=== PATIENT | male | born 1960 | race African-American/Black ===

== ENCOUNTER 2020-12-19 17:02 | Emergency (ER) | payer SELFPAY ==
[2020-12-19 19:08] LABS: ALT (SGPT) 14 U/L (8-55); AST (SGOT) 28 U/L (5-34); Albumin 3.8 g/dL (3.4-4.8); Alkaline Phosphatase 111 U/L (40-110); Anion Gap 14 mmol/L (10-20); BUN (Urea Nitrogen) 17 mg/dL (8.4-25.7); Bilirubin, Total 0.2 mg/dL (0.2-1.2); CK (CPK) 139 U/L (30-200); Calc. Creatinine Clearance 0 mL/min (70-130); Calcium 9.2 mg/dL (7.8-10.44); Carbon Dioxide 23 mmol/L (23-31); Chloride 108 mmol/L (98-107); Globulin 4.1 g/dL (2.4-3.5); Glucose 103 mg/dL (80-115); Potassium 4.8 mmol/L (3.5-5.1); Protein, Total 7.9 g/dL (5.8-8.1); Sodium 140 mmol/L (136-145)
[2020-12-19 19:10] LABS: #Basophils 0.1 thou/uL (0.0-0.2); #Eosinphils 0.2 thou/uL (0.0-0.7); #Lymphocytes 2.2 thou/uL (1.20-3.40); #Monocytes 0.7 thou/uL (0.11-0.59); %Basophils 0.7 % (0.0-1.0); %Lymphocytes 17.8 % (21.0-51.0); %Monocytes 5.6 % (0.0-10.0); %Neutrophils 73.9 % (42.0-75.0); Hemoglobin 12.7 g/dL (14.0-18.0); Mean Corpuscular HGB CONC 32.8 g/dL (32.0-36.0); Mean Corpuscular Hemoglobin 28.5 pg (27.0-31.0); Mean Corpuscular Volume 86.8 fL (78.0-98.0); Mean Platelet Volume 9.1 fL (7.4-10.4); Platelet Count 222 thou/uL (130-400); RBC Distribution Width 13.6 % (11.5-14.5); Red Blood Cell (RBC) Count 4.46 mill/uL (4.70-6.10); White Blood Cell (WBC) Count 12.2 thou/uL (4.8-10.8)
== END 2020-12-19 21:01 | disposition home or self-care (01) ==
LOC: ERS 17:02
DX: D64.9 Anemia, unspecified (principal); R25.2 Cramp and spasm; I10 Essential (primary) hypertension; F17.290 Nicotine dependence, other tobacco product, uncomplicated
CPT/HCPCS: 36415; 80053; 82550; 85025; 99283

== ENCOUNTER 2020-12-28 21:25 | Emergency (ER) | payer SELFPAY ==
[2020-12-28 23:31] LABS: #Basophils 0.1 thou/uL (0.0-0.2); #Eosinphils 0.4 thou/uL (0.0-0.7); #Monocytes 0.8 thou/uL (0.11-0.59); #Neutrophils 5.9 thou/uL (1.40-6.50); %Basophils 0.8 % (0.0-1.0); %Eosinophils 4.1 % (0.0-10.0); %Lymphocytes 29.7 % (21.0-51.0); %Monocytes 7.4 % (0.0-10.0); %Neutrophils 58.1 % (42.0-75.0); Hemoglobin 13.8 g/dL (14.0-18.0); Mean Corpuscular HGB CONC 32.7 g/dL (32.0-36.0); Mean Corpuscular Hemoglobin 28.6 pg (27.0-31.0); Mean Corpuscular Volume 87.4 fL (78.0-98.0); Mean Platelet Volume 8.6 fL (7.4-10.4); Platelet Count 236 thou/uL (130-400); RBC Distribution Width 14.1 % (11.5-14.5); Red Blood Cell (RBC) Count 4.84 mill/uL (4.70-6.10); White Blood Cell (WBC) Count 10.2 thou/uL (4.8-10.8)
[2020-12-28 23:46] LABS: ALT (SGPT) 22 U/L (8-55); AST (SGOT) 18 U/L (5-34); Albumin 3.9 g/dL (3.4-4.8); Alkaline Phosphatase 108 U/L (40-110); Anion Gap 11 mmol/L (10-20); BUN (Urea Nitrogen) 17 mg/dL (8.4-25.7); Bilirubin, Total 0.2 mg/dL (0.2-1.2); Calc. Creatinine Clearance 0 mL/min (70-130); Calcium 9.5 mg/dL (7.8-10.44); Carbon Dioxide 24 mmol/L (23-31); Chloride 110 mmol/L (98-107); Globulin 3.2 g/dL (2.4-3.5); Glucose 99 mg/dL (80-115); Potassium 4.4 mmol/L (3.5-5.1); Protein, Total 7.1 g/dL (5.8-8.1); Sodium 141 mmol/L (136-145)
[2020-12-28 23:47] LABS: Acetaminophen Less than 6.0 mcg/mL (10.0-30.0); Alcohol Less than 10 mg/dL (Less than 10); Salicylate Less than 8.0 mg/dL (15.0-30.0)
== END 2020-12-29 00:15 | disposition home or self-care (01) ==
LOC: ERS 21:25
DX: G47.9 Sleep disorder, unspecified (principal); R42 Dizziness and giddiness; I10 Essential (primary) hypertension; F17.290 Nicotine dependence, other tobacco product, uncomplicated
CPT/HCPCS: 36415; 70450; 80053; 80307; 84443; 85025; 93005

== ENCOUNTER 2021-03-13 15:28 | Emergency (ER) | payer OTHER, SELFPAY ==
[2021-03-13 16:22] LABS: #Basophils 0.1 thou/uL (0.0-0.2); #Eosinphils 0.1 thou/uL (0.0-0.7); #Lymphocytes 1.8 thou/uL (1.20-3.40); #Monocytes 0.5 thou/uL (0.11-0.59); #Neutrophils 4.2 thou/uL (1.40-6.50); %Basophils 1.2 % (0.0-1.0); %Eosinophils 1.6 % (0.0-10.0); %Lymphocytes 27.2 % (21.0-51.0); %Monocytes 6.8 % (0.0-10.0); %Neutrophils 63.2 % (42.0-75.0); Mean Corpuscular HGB CONC 32.5 g/dL (32.0-36.0); Mean Corpuscular Hemoglobin 28.1 pg (27.0-31.0); Mean Corpuscular Volume 86.2 fL (78.0-98.0); Mean Platelet Volume 8.6 fL (7.4-10.4); Platelet Count 228 thou/uL (130-400); Red Blood Cell (RBC) Count 4.98 mill/uL (4.70-6.10); White Blood Cell (WBC) Count 6.7 thou/uL (4.8-10.8)
[2021-03-13 16:43] LABS: ALT (SGPT) 8 U/L (8-55); AST (SGOT) 12 U/L (5-34); Albumin 3.7 g/dL (3.4-4.8); Alkaline Phosphatase 96 U/L (40-110); Anion Gap 12 mmol/L (10-20); BUN (Urea Nitrogen) 10 mg/dL (8.4-25.7); Bilirubin, Total 0.4 mg/dL (0.2-1.2); Calc. Creatinine Clearance 0 mL/min (70-130); Calcium 9.1 mg/dL (7.8-10.44); Carbon Dioxide 24 mmol/L (23-31); Chloride 107 mmol/L (98-107); Globulin 3.4 g/dL (2.4-3.5); Glucose 94 mg/dL (80-115); Potassium 4.2 mmol/L (3.5-5.1); Protein, Total 7.1 g/dL (5.8-8.1); Sodium 139 mmol/L (136-145)
[2021-03-13] MEDS ORDERED: levETIRAcetam in NS 0 ML ONE (17:00)
[2021-03-13] MEDS ORDERED: levETIRAcetam 500 MG TAB PO SCH (17:15)
== END 2021-03-13 19:30 ==
LOC: ERS 15:28
DX: R56.9 Unspecified convulsions (principal); I10 Essential (primary) hypertension; F17.290 Nicotine dependence, other tobacco product, uncomplicated; Z79.899 Other long term (current) drug therapy
CPT/HCPCS: 36415; 70450; 80053; 80177; 84146; 85025; 93005; J1953

== ENCOUNTER 2021-03-15 06:20 | Emergency (ER) | payer SELFPAY ==
[2021-03-15] MEDS ORDERED: levETIRAcetam in NS 100 ML ONE (06:23)
[2021-03-15] MEDS ORDERED: Lorazepam 2 MG/ML VIAL ONE ×3 (06:23→20:33)
[2021-03-15 08:08] LABS: #Lymphocytes 1.1 thou/uL (1.20-3.40); #Monocytes 0.5 thou/uL (0.11-0.59); #Neutrophils 9.7 thou/uL (1.40-6.50); %Basophils 0.4 % (0.0-1.0); %Eosinophils 0.2 % (0.0-10.0); %Lymphocytes 9.8 % (21.0-51.0); %Monocytes 4.6 % (0.0-10.0); Hemoglobin 14.2 g/dL (14.0-18.0); Mean Corpuscular HGB CONC 32.9 g/dL (32.0-36.0); Mean Corpuscular Hemoglobin 28.1 pg (27.0-31.0); Mean Corpuscular Volume 85.7 fL (78.0-98.0); Mean Platelet Volume 8.7 fL (7.4-10.4); Platelet Count 231 thou/uL (130-400); Red Blood Cell (RBC) Count 5.05 mill/uL (4.70-6.10); White Blood Cell (WBC) Count 11.4 thou/uL (4.8-10.8)
[2021-03-15 08:31] LABS: ALT (SGPT) 8 U/L (8-55); AST (SGOT) 10 U/L (5-34); Albumin 3.8 g/dL (3.4-4.8); Alkaline Phosphatase 97 U/L (40-110); Anion Gap 11 mmol/L (10-20); BUN (Urea Nitrogen) 10 mg/dL (8.4-25.7); Bilirubin, Total 0.4 mg/dL (0.2-1.2); Calc. Creatinine Clearance 0 mL/min (70-130); Calcium 9.3 mg/dL (7.8-10.44); Carbon Dioxide 24 mmol/L (23-31); Chloride 104 mmol/L (98-107); Globulin 3.6 g/dL (2.4-3.5); Glucose 119 mg/dL (80-115); Potassium 3.8 mmol/L (3.5-5.1); Protein, Total 7.4 g/dL (5.8-8.1); Sodium 135 mmol/L (136-145)
[2021-03-15] MEDS ORDERED: levETIRAcetam in NS 1,000 MG in Premix Bag 1 BAG IVPB SCH (13:00)
[2021-03-15 14:30] LABS: SARS-CoV-2 NAA Rapid Test Not Detected (NotDetected)
== END 2021-03-15 21:00 | disposition short-term general hospital (02) ==
LOC: ERS 06:20
DX: G40.909 Epilepsy, unspecified, not intractable, without status epilepticus (principal); I10 Essential (primary) hypertension; F17.290 Nicotine dependence, other tobacco product, uncomplicated; Z20.822 Contact with and (suspected) exposure to COVID-19; Z79.899 Other long term (current) drug therapy
CPT/HCPCS: 36415; 70450; 80053; 80177; 84146; 85025; 96374; 96375; 96376; J1953; J2060; U0002